=== PATIENT | male | born 1970 | race African-American/Black ===

== ENCOUNTER 2019-05-30 11:19 | Outpatient (CLI) | payer OTHER ==
[~2019-05-30 11:19] MED LIST: AMBIEN10 MG PO; DUI500 PO; LANOXIN125 MCG; TOPROL XL50 MG; ULTRACET PO; ZETIA10 MG
== END 2019-05-30 13:03 | disposition home or self-care (01) ==
LOC: LAB 11:19
DX: Z86.010 Personal history of colon polyps (principal)

== ENCOUNTER → 2019-06-04 | Day surgery (SDC) | payer OTHER | END | disposition home or self-care (01) | LOC: ADM 06-01 13:00 → AMB-ENDOS 08:13 | DX: K62.89 Other specified diseases of anus and rectum (principal); Z12.11 Encounter for screening for malignant neoplasm of colon ==

== ENCOUNTER 2022-01-30 15:00 | Outpatient (CLI) | payer OTHER | END 2022-01-30 15:10 | disposition home or self-care (01) | LOC: PPH VACUNA 15:00 | PROVIDERS: ATTEND Emergency Medicine Pediatric Emergency Medicine | DX: Z23 Encounter for immunization (principal) ==